=== PATIENT | female | born 1955 | race Asian ===

== ENCOUNTER 2018-11-18 07:46 | Emergency (ER) | payer SELFPAY ==
[~2018-11-18] VITALS: Ht 167.6 cm; Wt 75.7 kg
[2018-11-18 07:58] VITALS: Ht 167.6 cm; Wt 75.7 kg
[2018-11-18 08:31] LABS: PLATELET COUNT 310 x10^3mcL (130-400); RED CELL DISTRIBUTION WIDTH 12.9 % (11.5-14.5)
[2018-11-18 08:40] LABS: CARBON DIOXIDE 25.5 mmol/L (21-32); CREATININE SERUM 1.1 mg/dL (0.6-1.0); POTASSIUM SERUM 3.8 mmol/L (3.5-5.1)
[2018-11-18 08:44] LABS: ALBUMIN 3.5 g/dL (3.4-5.0)
[2018-11-18 08:50] LABS: TOTAL PROTEIN, SERUM 8.3 g/dL (6.4-8.2)
[2018-11-18 10:07] LABS: UA SPECIFIC GRAVITY <=1.005 (1.005-1.035); microscopic required? YES; urine erythrocyte 3+ (NEGATIVE)
[2018-11-18 11:49] VITALS: BP 96/61
[2018-11-18 13:32] LABS: BAND NEUTROPHIL 6 % (0-10); BASOPHIL 0 % (0-2); MONOCYTE 3 % (0-7); SEGMENTED NEUTROPHILS 86 % (37-75)
[2018-11-18 13:33] LABS: PLATELET MORPHOLOGY PLATELETS INCREASED; rbc morphology (normal/abnorm) ABNORMAL (NORMAL)
== END 2018-11-18 11:49 | disposition home or self-care (01) ==
LOC: ED 07:46
PROVIDERS: Emergency Medicine
DX: N39.0 Urinary tract infection, site not specified (principal); I10 Essential (primary) hypertension; E03.9 Hypothyroidism, unspecified
CPT/HCPCS: J0696; J7030; Q0092; Q0162

== ENCOUNTER 2018-11-22 18:04 | Emergency (ER) | payer SELFPAY ==
[~2018-11-22] VITALS: Ht 167.6 cm; Wt 75.3 kg
[2018-11-22 18:33] VITALS: Ht 167.6 cm; Wt 75.3 kg
[2018-11-22 20:02] VITALS: BP 140/90
== END 2018-11-22 20:02 | disposition home or self-care (01) ==
LOC: ED 18:04
DX: A49.8 Other bacterial infections of unspecified site (principal); R78.81 Bacteremia; N39.0 Urinary tract infection, site not specified
CPT/HCPCS: J0696; J1885